=== PATIENT | male | born 1940 ===

== ENCOUNTER 2023-03-20 19:34 | Inpatient (IN) | payer MEDICARE, SELFPAY ==
--- NOTE | ~2023-03-20 | CT_ITS ---
EXAMINATION: CTA OF THE HEAD/NECK CLINICAL INFORMATION: Dysarthria COMPARISON: Head CT from today TECHNIQUE: A routine non contrast head CT was performed immediately prior. This was followed by a 70 mL bolus of Omnipaque 350. Subsequent multidetector helical imaging was performed of the head and neck. Delayed post contrast imaging was also performed through the head. Multiplanar reformats and MIP were also obtained. Internal carotid artery stenoses are assessed in accordance with NASCET criteria unless otherwise indicated. This CT examination was performed using dose optimization techniques as appropriate, variously including the following: *Automated exposure control *Adjustment of mA and/or kV according to patient size (this includes techniques or standardized protocols for targeted exams where dose is matched to indication/reason for exam; i.e. extremities or head) *Use of iterative reconstruction technique DLP: 1408 mGy-cm. FINDINGS: CT HEAD: There is no evidence of acute intracranial hemorrhage or territorial infarction. No abnormal mass effect or midline shift is seen. Erazo to white matter differentiation is well preserved. No extra-axial fluid collections are identified. No suspicious leptomeningeal or parenchymal enhancement on the post-contrast images. No hydrocephalus. Proportional prominence of the ventricles and sulcal spaces is consistent with mild volume loss. Patchy periventricular and deep white matter hypoattenuation is consistent with moderate small vessel ischemic changes. The osseous structures and soft tissues are normal. The mastoid air cells and visualized portions of the paranasal sinuses are well aerated. CTA NECK: The aortic arch is of normal caliber and the origins of the great vessels are patent without evidence of significant stenosis. The cervical portion of the vertebral arteries are patent bilaterally. No luminal irregularities in the common carotid arteries and the carotid bifurcations are patent bilaterally. Atherosclerotic calcification at the origin of both internal carotid arteries without associated flow-limiting stenosis. The cervical portion of the internal carotid arteries are of normal caliber. The laryngeal structures and pharyngeal mucosal spaces are unremarkable. The oral cavity appears normal. The parotid and submandibular glands are normal. No pathologically enlarged lymph nodes. The thyroid gland is unremarkable. The lung apices are clear without evidence of pneumothorax. Mild emphysema. Spinal alignment is maintained. Mild cervical spondylosis is noted. CTA HEAD: The intradural portion of the vertebral arteries are of normal caliber. The basilar, superior cerebellar, and posterior communicating arteries are patent. The posterior, middle, and anterior cerebral arteries are of normal caliber without evidence of significant luminal irregularity. No definite intracranial aneurysms. CT/CT angio head neck stroke IMPRESSION: 1. No acute intracranial finding. Chronic volume loss with small vessel ischemic change. 2. No large vessel occlusion or flow-limiting stenosis. This critical result was discussed with Toby Field MD by telephone at 03/20/2023 8:11 PM and it was ascertained that the content and urgency of the report was understood at the time of direct communication.
--- NOTE | ~2023-03-20 | CT_ITS ---
EXAMINATION: CT HEAD WITHOUT CONTRAST CLINICAL INFORMATION: Dysarthria COMPARISON: None. TECHNIQUE: Contiguous axial imaging was performed from the skull base to vertex without intravenous contrast. This CT examination was performed using dose optimization techniques as appropriate, variously including the following: * Automated exposure control * Adjustment of mA and/or kV according to patient size (this includes techniques or standardized protocols for targeted exams where dose is matched to indication/reason for exam; i.e. extremities or head) Use of iterative reconstruction technique DLP: 629 mGy-cm. FINDINGS: There is no evidence of acute intracranial hemorrhage or territorial infarction. No abnormal mass effect or midline shift is seen. Erazo to white matter differentiation is well preserved. No extra-axial fluid collections are identified. No hydrocephalus. Proportional prominence of the ventricles and sulcal spaces is consistent with mild volume loss. Patchy periventricular and deep white matter hypoattenuation is consistent with mild small vessel ischemic changes. The osseous structures and soft tissues are normal. The mastoid air cells and visualized portions of the paranasal sinuses are well aerated. CT/CT head for stroke IMPRESSION: No acute intracranial pathology. Mild volume loss with small vessel ischemic change. This critical result was discussed with Toby Field MD by telephone at 03/20/2023 8:09 PM and it was ascertained that the content and urgency of the report was understood at the time of direct communication.
--- NOTE | ~2023-03-20 | MR_ITS ---
EXAMINATION: MR BRAIN WITHOUT CONTRAST CLINICAL INFORMATION: CVA. COMPARISON: Head CT March 20, 2023. TECHNIQUE: Multiplanar, multisequence imaging of the brain was performed without intravenous contrast. FINDINGS: There is no acute infarction, hemorrhage, mass, or extra-axial fluid collection. There is a microhemorrhage within the left periatrial white matter. A small chronic lacunar infarct is seen within the left external capsule region. Mild chronic microangiopathic changes are seen in the cerebral white matter. There is a mild degree of diffuse brain parenchymal volume loss. There is a small amount of right mastoid fluid. There are bilateral lens replacements. MR/MR head/brain wo con IMPRESSION: No acute infarct, mass lesion, intracranial hemorrhage, or evidence of hydrocephalus. 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 Mild chronic microangiopathic changes and brain parenchymal volume loss.
[2023-03-20 19:43] VITALS: BP 110/70; BP 138/89; PULSE 110; PULSE 116; RESP 16; TEMP 37; O2SAT 97; O2SAT 98; BMI 24.4
--- NOTE | 2023-03-20 19:46 | ED.NEUROSD ---
HPI - Neuro Symptoms/Deficit General Chief Complaint: General Medical Stated Complaint: altered Time Seen by Provider: 03/20/23 19:41 Source: patient Mode of arrival: EMS Limitations: no limitations History of Present Illness HPI Narrative: Patient 83 years old with history of hypertension, hyperlipidemia and diabetes very active otherwise since yesterday evening noticed slight forgetfulness and uneasiness felt foggy at 22:15 yesterday noticed yes per problem in speaking and expressing himself which lasted for some time before he went to bed in the morning when he woke up he gets headache his speech problem still having the headache and fogginess at 18:00 again today patient noticed having difficulty expressing which lasted until he came to the ER no nausea no vomiting no palpitation no chest pain no focal weakness normal gait on arrival patient noticed to be in AFib with heart rate in 120 patient is unaware of that patient takes baby aspirin daily and drinks few 2-3 beers every day but not alcoholic Related Data Allergies Allergy/AdvReac Type Severity Reaction Status Date / Time No Known Allergies Allergy Verified 03/20/23 19:46 Review of Systems Review of Systems: Yes all other systems are reviewed and are negative [facility] Past Medical History Medical History Diabetes mellitus Hyperlipidemia Hypertension Social History Social History Alcohol intake: current Alcohol intake frequency: 3 or more drinks per day Alcohol type: beer Smoked in Last 30 Days: Yes Use of substances other than those prescribed or required for medical reasons: No Advance Directives: No Advance Directives Information Provided: No Physical Exam Vital Signs: Vital Signs: Last Vital Signs Temp 99.6 F 03/20/23 23:37 Pulse 107 H 03/20/23 23:37 Resp 14 03/20/23 23:37 BP 157/83 H 03/20/23 23:37 Pulse Ox 97 03/20/23 23:37 O2 Del Method Room Air 03/20/23 23:37 BMI result Body Mass Index 24.4 Appearance: Alert. Oriented X3. No acute distress. Eyes: PERRLA, No Nystagmus ENT: Pharynx normal. Oral Mucosa moist Neck: Normal inspection. Neck supple. CVS: Irregular irregular tachycardia no murmur or rub. Pulses normal. Respiratory: No respiratory distress. Equal air entry bilateral, no wheezing/rales/rhonchi Abdomen: Soft and nontender. Bowel sounds are present, no mass palpable, no CVA tenderness Skin: Skin warm and dry. Normal skin color. Normal skin turgor. Extremities: No lower extremity edema. No calf tenderness Neuro: Oriented X 3. No motor deficit. No sensory deficit.No cerebellar signs , cranial nerves II-XII intact normal speech and gait Medications Administered Generic Name Dose Route Start Last Admin Trade Name Freq PRN Reason Stop Dose Admin Enoxaparin Sodium 40 mg 03/20/23 23:30 03/20/23 23:41 Enoxaparin Sodium 40 Mg/0.4 Ml Syringe SUBCUT 40 mg BEDTIME GRICEL Administration Discontinued Medications Generic Name Dose Route Start Last Admin Trade Name Freq PRN Reason Stop Dose Admin Apixaban 5 mg 03/20/23 22:19 03/20/23 22:32 Apixaban 5 Mg Tablet PO 03/20/23 22:20 5 mg ONCE ONE Administration Aspirin 162 mg 03/20/23 20:36 03/20/23 20:43 Aspirin 81 Mg Tab.Chew PO 03/20/23 20:37 162 mg ONCE ONE Administration Sodium Chloride 1,000 mls @ 999 mls/hr 03/20/23 20:36 03/20/23 21:44 Ns IV 03/20/23 21:36 Infused .Q1H1M ONE Infusion Metoprolol Tartrate 5 mg 03/20/23 22:20 03/20/23 22:32 Metoprolol Tartrate 5 Mg/5 Ml Vial IVPUSH 03/20/23 22:21 5 mg ONCE ONE Administration Medical Decision Making Medical Decision Making [facility] Narrative: Patient with new onset of AFib with frequent TIAs since yesterday CT head and CTA head and neck negative for acute LVO or infarct. Patient unaware of AFib/tachycardia Patient already on aspirin will start on Eliquis with admit further evaluation Differential Diagnosis TIA/SAH//CVA/metabolic Consult Healthcare Provider Management of the patient was discussed with: Hospitalist Lab Data [facility] Lab Attestation statement: I reviewed the patient's lab results. 03/20/23 19:54 03/20/23 19:54 Labs: Lab Results 03/20/23 03/20/23 03/20/23 Range/Units 19:51 19:54 19:54 WBC 9.1 (4.8-10.8) X10*3/uL RBC 4.37 L (4.60-5.80) X10*6/uL Hgb 14.0 (14.0-18.0) g/dl Hct 40.0 L (42.0-52.0) % MCV 91.5 (80.0-98.0) fL MCH 32.0 (27.0-33.0) pg MCHC 35.0 (31.0-36.0) g/dl RDW 12.4 (11.0-16.0) % Plt Count 200 (160-400) X10*3/uL MPV 10.3 (9.4-12.4) fL Immature Gran % (Auto) 0.3 (0.0-0.4) % Neut % (Auto) 52.4 (45-73) % Lymph % (Auto) 33.9 (20-40) % Haskell % (Auto) 11.3 H (2-11) % Eos % (Auto) 1.7 (0-4) % Baso % (Auto) 0.4 (0-2) % Lymph # (Auto) 3.1 (1.2-4.9) X10*3/uL Haskell # (Auto) 1.0 (0.1-1.2) X10*3/uL Eos # (Auto) 0.2 (0.0-0.4) X10*3/uL Baso # (Auto) 0.0 (0.0-0.2) X10*3/uL Abs Immat Gran (auto) 0.03 (0.00-0.03) X10*3/uL Absolute Neuts (auto) 4.8 (2.0-8.3) x10*3/uL Absolute Nucleated RBC 0.000 (0.0-0.012) X10*3/uL Nucleated RBC % (auto) 0.0 (0.0-0.2) /100WBC PT (10.0-13.1) SEC INR (0.9-1.1) APTT (26.0-36.4) SEC Sodium 143 (135-145) mmol/L Potassium 3.5 (3.3-5.1) mmol/L Chloride 100 (96-108) mmol/L Carbon Dioxide 25 (22-29) mmol/L Anion Gap 22 H (12-20) BUN 24 H (9-16) mg/dL Creatinine 1.44 H (0.5-1.4) mg/dL Estim Creat Clear Calc 33.1 Estimated GFR 47 POC Glucose 108 (60-115) mg/dL Random Glucose 100 (60-115) mg/dL Calcium 10.1 (8.4-10.2) mg/dL Magnesium 1.7 (1.6-2.6) mg/dL Total Bilirubin 0.7 (0.0-1.0) mg/dL AST 16 (5-37) U/L ALT 14 (0-40) U/L Alkaline Phosphatase 44 (39-117) U/L Total Creatine Kinase 89 (38-174) U/L Troponin I High Sens (<3.5-35.0) ng/L Total Protein 7.0 (6.5-8.0) g/dL Albumin 4.6 (3.5-5.0) g/dL Triglycerides 141 mg/dL Cholesterol 114 mg/dL LDL Cholesterol, Calc 54 mg/dl HDL Cholesterol 32 mg/dL Ethyl Alcohol 83 mg/dL 03/20/23 03/20/23 Range/Units 19:54 19:54 WBC (4.8-10.8) X10*3/uL RBC (4.60-5.80) X10*6/uL Hgb (14.0-18.0) g/dl Hct (42.0-52.0) % MCV (80.0-98.0) fL MCH (27.0-33.0) pg MCHC (31.0-36.0) g/dl RDW (11.0-16.0) % Plt Count (160-400) X10*3/uL MPV (9.4-12.4) fL Immature Gran % (Auto) (0.0-0.4) % Neut % (Auto) (45-73) % Lymph % (Auto) (20-40) % Haskell % (Auto) (2-11) % Eos % (Auto) (0-4) % Baso % (Auto) (0-2) % Lymph # (Auto) (1.2-4.9) X10*3/uL Haskell # (Auto) (0.1-1.2) X10*3/uL Eos # (Auto) (0.0-0.4) X10*3/uL Baso # (Auto) (0.0-0.2) X10*3/uL Abs Immat Gran (auto) (0.00-0.03) X10*3/uL Absolute Neuts (auto) (2.0-8.3) x10*3/uL Absolute Nucleated RBC (0.0-0.012) X10*3/uL Nucleated RBC % (auto) (0.0-0.2) /100WBC PT 11.0 (10.0-13.1) SEC INR 1.0 (0.9-1.1) APTT 28.3 (26.0-36.4) SEC Sodium (135-145) mmol/L Potassium (3.3-5.1) mmol/L Chloride (96-108) mmol/L Carbon Dioxide (22-29) mmol/L Anion Gap (12-20) BUN (9-16) mg/dL Creatinine (0.5-1.4) mg/dL Estim Creat Clear Calc Estimated GFR POC Glucose (60-115) mg/dL Random Glucose (60-115) mg/dL Calcium (8.4-10.2) mg/dL Magnesium (1.6-2.6) mg/dL Total Bilirubin (0.0-1.0) mg/dL AST (5-37) U/L ALT (0-40) U/L Alkaline Phosphatase (39-117) U/L Total Creatine Kinase (38-174) U/L Troponin I High Sens 2.9 (<3.5-35.0) ng/L Total Protein (6.5-8.0) g/dL Albumin (3.5-5.0) g/dL Triglycerides mg/dL Cholesterol mg/dL LDL Cholesterol, Calc mg/dl HDL Cholesterol mg/dL Ethyl Alcohol mg/dL Independent Interpretation I performed an independent interpretation of an: EKG Interpretation: Atrial fibrillation with ventricular rate 115 beats per minute no acute ST T wave changes no acute ischemia NIH Stroke Scale Internal: Initial- Upon Arrival Level of Consciousness: Alert Level of Consciousness Questions: Answers both questions correctly Level of Consciousness Commands: Performs both tasks correctly Best Gaze: Normal Visual: No visual loss Facial Palsy: Normal Motor Arm (Right): No drift Motor Arm (Left): No drift Motor Leg (Right): No drift Motor Leg (Left): No drift Limb Ataxia: Absent Sensory: Normal Best Language: No aphasia Dysarthia: Normal Extinction and Inattention: No abnormality Score: 0 Discharge Plan Discharge Clinical Impression: Transient ischemic attack, Atrial fibrillation with rapid ventricular response, Acute renal failure Patient Disposition: Admitted As Inpatient
--- NOTE | 2023-03-20 19:47 | ECG_ITS ---
Test Reason : HYPERTENSION Blood Pressure : / mmHG Vent. Rate : 115 BPM Atrial Rate : 000 BPM P-R Int : 000 ms QRS Dur : 080 ms QT Int : 284 ms P-R-T Axes : 000 000 005 degrees QTc Int : 392 ms Atrial fibrillation with rapid ventricular response Abnormal ECG When compared with ECG of 20-FEB-2003 09:56, Atrial fibrillation has replaced Sinus rhythm Vent. rate has increased BY 51 BPM Referred By: Toby Field Electronically Signed By:Andrea Ayala
[2023-03-20 19:56] VITALS: BP 146/90; PULSE 121; RESP 16; TEMP 37; O2SAT 99
[2023-03-20 19:59] LABS: MANUAL DIFF FLAG NO
[2023-03-20 20:00] VITALS: BP 146/97; PULSE 113; RESP 18; O2SAT 97
[2023-03-20 20:04] LABS: Basophils Percent Auto 0.4 % (0-2); Eosinophils Absolute Auto 0.2 X10*3/uL (0.0-0.4); Eosinophils Percent Auto 1.7 % (0-4); Imm Gran Abs Auto 0.03 X10*3/uL (0.00-0.03); Imm Gran Pct Auto 0.3 % (0.0-0.4); Lymphocytes Absolute Auto 3.1 X10*3/uL (1.2-4.9); Lymphocytes Percent Auto 33.9 % (20-40); Mean Corpuscular Volume 91.5 fL (80.0-98.0); Mean Platelet Volume 10.3 fL (9.4-12.4); Monocytes Percent Auto 11.3 % (2-11); Neutrophils Absolute Auto 4.8 x10*3/uL (2.0-8.3); Neutrophils Percent Auto 52.4 % (45-73); Platelet Count 200 X10*3/uL (160-400); Red Blood Count 4.37 X10*6/uL (4.60-5.80); Red Cell Distribution Width 12.4 % (11.0-16.0); White Blood Count 9.1 X10*3/uL (4.8-10.8)
[2023-03-20 20:11] LABS: Partial Thromboplastin Time 28.3 SEC (26.0-36.4)
[2023-03-20 20:15] LABS: Stroke Lab Use COMPLETE
[2023-03-20 20:19] LABS: Troponin-I High Sensitivity 2.9 ng/L (<3.5-35.0)
[2023-03-20 20:21] LABS: Alanine Aminotransferase 14 U/L (0-40); Albumin Level 4.6 g/dL (3.5-5.0); Alkaline Phosphatase 44 U/L (39-117); Anion Gap 22 (12-20); Aspartate Amino Transferase 16 U/L (5-37); Bilirubin Total 0.7 mg/dL (0.0-1.0); Blood Urea Nitrogen 24 mg/dL (9-16); Calcium 10.1 mg/dL (8.4-10.2); Carbon Dioxide 25 mmol/L (22-29); Chloride 100 mmol/L (96-108); Creatinine Clr Calc Pharmacy 33.1; Estimated Glomerular Filt Rate 47; Ethanol 83 mg/dL; Glucose Random 100 mg/dL (60-115); Magnesium 1.7 mg/dL (1.6-2.6); Potassium 3.5 mmol/L (3.3-5.1); Sodium 143 mmol/L (135-145)
[2023-03-20] MEDS: Aspirin 81 MG TAB.CHEW 162 MG PO (20:43)
[2023-03-20] MEDS: 0.9 % Sodium Chloride 1,000 ML 999 ML IV (20:43)
[2023-03-20 22:00] VITALS: BP 164/88; PULSE 116; RESP 16; TEMP 37; O2SAT 96
--- NOTE | 2023-03-20 22:09 | ECG_ITS ---
Test Reason : A-FIB WITH RVR Blood Pressure : / mmHG Vent. Rate : 111 BPM Atrial Rate : 000 BPM P-R Int : 000 ms QRS Dur : 086 ms QT Int : 278 ms P-R-T Axes : 000 010 011 degrees QTc Int : 378 ms Atrial fibrillation with rapid ventricular response Abnormal ECG When compared with ECG of 20-MAR-2023 20:25, No significant change was found Referred By: Toby Field Electronically Signed By:STEPHANIE MEYER MD
[2023-03-20 22:15] LABS: Glucose, Whole Blood 108 mg/dL (60-115)
[2023-03-20] MEDS: Metoprolol Tartrate 5 MG/5 ML VIAL IVPUSH (22:32)
[2023-03-20] MEDS: Apixaban 5 MG TABLET PO (22:32)
--- NOTE | 2023-03-20 22:50 | P.HPHOSP_ITS ---
History of Present Illness Date of Service: 03/20/23 Chief Complaint: Slurring of speech This is a 83 pertinent history of rme-ofeighn-apocglajb diabetes mellitus, essential hypertension, mixed hyperlipidemia who presents to the emergency department for evaluation of slurred speech. Patient states he had an episode of slurred speech 1 day prior to presentation tested for about 4 hours. Patient states he attended his granddaughter's graduation and came home when he noticed slurred speech. Patient did not want to come to the ER. He also had slight headache overnight. On the day of presentation, patient again had an episode of slurred speech which lasted for about an hour. No loss of consciousness, tongue bite, jerking movement of extremities, facial droop, extremity weakness or similar complaints in the past. Patient denies fever, chills, chest discomfort, palpitations, shortness of breath, abdominal pain, changes in urinary or bowel habits. No history of heart rhythm issues In the emergency department, patient was found to be in AFib with RVR Review of Systems Constitutional: Constitutional: Reports no additional constitutional complaints Cardiovascular: Cardiovascular: Reports no additional cardiovascular complaints Respiratory: Respiratory: Reports no additional respiratory complaints Gastrointestinal: Gastrointestinal: Reports no additional gastrointestinal complaints Genitourinary: Genitourinary: Reports no additional male genitourinary complaints Neurologic: Reports Abnormal speech present [facility] Medical History Diabetes mellitus Hyperlipidemia Hypertension Pertinent family history: Not significant due to age. Father had acute CVA in the 70s Social History Alcohol intake: current Alcohol intake frequency: 3 or more drinks per day Alcohol type: beer Smoked in Last 30 Days: Yes Use of substances other than those prescribed or required for medical reasons: No Advance Directives: No Advance Directives Information Provided: No Meds Allergies Allergy/AdvReac Type Severity Reaction Status Date / Time No Known Allergies Allergy Verified 03/20/23 19:46 Active Medications: Current Medications Acetaminophen (Acetaminophen 325 Mg Tablet) 650 mg PO Q6H PRN PRN Reason: Pain, Mild (Pain Scale 1-3) Melatonin (Melatonin 3 Mg Tablet) 6 mg PO BEDTIME PRN PRN Reason: Insomnia Ondansetron HCl (Ondansetron Hcl 4 Mg/2 Ml Vial) 4 mg IVPUSH Q8H PRN PRN Reason: Nausea and Vomiting Sodium Chloride (0.9 % Sodium Chloride Flush 3 Ml Syringe) 3 ml IVFLUSH QSHIFT [facility] Physical Exam Vital Signs and Narrative: Vital Signs: Last Vital Signs Temp 98.6 F 03/20/23 22:00 Pulse 116 H 03/20/23 22:00 Resp 16 03/20/23 22:00 BP 164/88 H 03/20/23 22:00 Pulse Ox 96 03/20/23 22:00 O2 Del Method Room Air 03/20/23 22:00 BMI result Body Mass Index 24.4 Elderly male lying in bed in no distress Neck supple, no JVD Irregularly irregular, S1-S2 heard Regular breath sounds bilaterally, no wheezing or crackles appreciated Abdomen soft nontender, no guarding, no rigidity Patient is awake, alert and oriented to self, place, time and person ; no facial droop, no dysarthria, no nystagmus, no pronator drift, strength 5/5 in bilateral upper and lower extremity, tongue and uvula midline Psych: Normal mood No pedal edema Neuro: Speech: Abnormal speech present Results Labs 03/20/23 19:54 03/20/23 19:54 Labs: Laboratory Results - last 24 hr 03/20/23 03/20/23 03/20/23 19:51 19:54 19:54 MCV 91.5 MCH 32.0 MCHC 35.0 RDW 12.4 Plt Count 200 MPV 10.3 Immature Gran % (Auto) 0.3 Neut % (Auto) 52.4 Lymph % (Auto) 33.9 Humphreys % (Auto) 11.3 H Eos % (Auto) 1.7 Baso % (Auto) 0.4 Lymph # (Auto) 3.1 Humphreys # (Auto) 1.0 Eos # (Auto) 0.2 Baso # (Auto) 0.0 Abs Immat Gran (auto) 0.03 Absolute Neuts (auto) 4.8 Absolute Nucleated RBC 0.000 Nucleated RBC % (auto) 0.0 PT INR APTT Anion Gap 22 H Estim Creat Clear Calc 33.1 Estimated GFR 47 POC Glucose 108 Random Glucose 100 Calcium 10.1 Magnesium 1.7 Total Bilirubin 0.7 AST 16 ALT 14 Alkaline Phosphatase 44 Total Creatine Kinase 89 Troponin I High Sens Total Protein 7.0 Albumin 4.6 Ethyl Alcohol 83 06/11/23 06/11/23 19:54 19:54 MCV MCH MCHC RDW Plt Count MPV Immature Gran % (Auto) Neut % (Auto) Lymph % (Auto) Humphreys % (Auto) Eos % (Auto) Baso % (Auto) Lymph # (Auto) Humphreys # (Auto) Eos # (Auto) Baso # (Auto) Abs Immat Gran (auto) Absolute Neuts (auto) Absolute Nucleated RBC Nucleated RBC % (auto) PT 11.0 INR 1.0 APTT 28.3 Anion Gap Estim Creat Clear Calc Estimated GFR POC Glucose Random Glucose Calcium Magnesium Total Bilirubin AST ALT Alkaline Phosphatase Total Creatine Kinase Troponin I High Sens 2.9 Total Protein Albumin Ethyl Alcohol Imaging Radiologist's Impressions: Impressions Head CT 03/20/23 20:04 IMPRESSION: No acute intracranial pathology. Mild volume loss with small vessel ischemic change. This critical result was discussed with Toby Field MD by telephone at 03/20/2023 8:09 PM and it was ascertained that the content and urgency of the report was understood at the time of direct communication. Head/Neck CTA 03/20/23 20:09 IMPRESSION: 1. No acute intracranial finding. Chronic volume loss with small vessel ischemic change. 2. No large vessel occlusion or flow-limiting stenosis. This critical result was discussed with Toby Field MD by telephone at 03/20/2023 8:11 PM and it was ascertained that the content and urgency of the report was understood at the time of direct communication. Assessment and Plan (1) Transient ischemic attack: Status: Acute (2) Atrial fibrillation with rapid ventricular response: Status: Acute Plan This is a 83 pertinent history of ocr-hoqaykw-eiclikssz diabetes mellitus, essential hypertension, mixed hyperlipidemia who presents to the emergency department for evaluation of slurred speech. #. Slurred speech, transient concerning for TIA. ABCD2 score 6. Will obtain MRI to rule out acute CVA. Obtaining A1c, echo and lipid panel to complete workup and optimize risk factors. Patient given aspirin in the ER. Appreciate neurology assistance #. AFib with RVR, ?new onset. Rate controlled with IV metoprolol in the ER. Consulting Cardiology and obtaining echo. CHADVASc score 6 #. Eleveated creatinine. ADRIANA vs CKD. Monitor with IV crystalloid resuscitation. Avoid nephrotoxins #. Ngy-vtlitls-wpmzdolsg diabetes mellitus. Initiating Accu-Cheks with sliding scale insulin #. Essential hypertension. Continue home p.o. antihypertensives #. Mixed hyperlipidemia. On statin Med rec pending DVT prophylaxis: Lovenox Full code Cardiac diet Admit as inpatient and will require two night minimum hospital stay for stroke and new onset AFib with RVR workup. Specialist consult pending Time Spent With Patient Time: Total time managing care of this patient today ____ minutes. Quality Stroke Does the patient have a stroke diagnosis?: No Reason for No Anti-thrombotic by Day Two: N/A - Med Ordered VTE Prior VTE?: No VTE Risk Level:: Medical - moderate - high VTE Device Contraindication: Treatment Not Indicated VTE Drug Contraindication: N/A - Med Ordered
[2023-03-20 23:37] VITALS: BP 157/83; PULSE 107; RESP 14; TEMP 37.6; O2SAT 97
[2023-03-20] MEDS: Enoxaparin Sodium 40 MG/0.4 ML SYRINGE SUBCUT (23:41)
[2023-03-20 23:44] LABS: Cholesterol 114 mg/dL; HDL Cholesterol 32 mg/dL; LDL Cholesterol Calculated 54 mg/dl; Triglycerides 141 mg/dL
[2023-03-21 00:12] LABS: Reflex LDLD? No
--- NOTE | 2023-03-21 00:16 | PC.NURSE ---
Report Given to
[2023-03-21] MEDS: 0.9 % Sodium Chloride Flush 3 ML SYRINGE IVFLUSH ×2 (02:07→08:28)
[2023-03-21 02:17] VITALS: BP 143/81; PULSE 94; RESP 18; TEMP 37.2; O2SAT 96
[2023-03-21 04:00] VITALS: BP 144/81; PULSE 107; RESP 18; TEMP 36.4; O2SAT 98
[2023-03-21 06:26] LABS: MANUAL DIFF FLAG NO
[2023-03-21 06:52] LABS: Basophils Absolute Auto 0.1 X10*3/uL (0.0-0.2); Basophils Percent Auto 0.6 % (0-2); Eosinophils Absolute Auto 0.1 X10*3/uL (0.0-0.4); Eosinophils Percent Auto 1.4 % (0-4); Hematocrit 38.1 % (42.0-52.0); Hemoglobin 13.2 g/dl (14.0-18.0); Imm Gran Abs Auto 0.04 X10*3/uL (0.00-0.03); Imm Gran Pct Auto 0.4 % (0.0-0.4); Lymphocytes Absolute Auto 2.2 X10*3/uL (1.2-4.9); Lymphocytes Percent Auto 24.4 % (20-40); Mean Corpuscular HGB Conc 34.6 g/dl (31.0-36.0); Mean Corpuscular Volume 92.3 fL (80.0-98.0); Mean Platelet Volume 11.2 fL (9.4-12.4); Monocytes Percent Auto 10.8 % (2-11); Neutrophils Absolute Auto 5.6 x10*3/uL (2.0-8.3); Neutrophils Percent Auto 62.4 % (45-73); Platelet Count 190 X10*3/uL (160-400); Red Blood Count 4.13 X10*6/uL (4.60-5.80); Red Cell Distribution Width 12.3 % (11.0-16.0)
[2023-03-21 07:00] LABS: Anion Gap 12 (12-20); Blood Urea Nitrogen 21 mg/dL (9-16); Calcium 9.5 mg/dL (8.4-10.2); Carbon Dioxide 31 mmol/L (22-29); Chloride 102 mmol/L (96-108); Creatinine Clr Calc Pharmacy 42.2; Estimated Glomerular Filt Rate > 60; Glucose Random 119 mg/dL (60-115); Potassium 3.5 mmol/L (3.3-5.1); Sodium 141 mmol/L (135-145)
[2023-03-21 07:13] LABS: Glucose, Whole Blood 122 mg/dL (60-115)
--- NOTE | 2023-03-21 07:17 | PHA.MEDREC ---
Pharmacy Consult ? Medication Reconciliation Pharmacy has completed the medication reconciliation. Used pharmacy claims
[2023-03-21 07:21] VITALS: BP 131/81; PULSE 93; RESP 20; TEMP 36.9; O2SAT 97
[2023-03-21 07:54] LABS: Estimated Average Glucose 108 mg/dL; Hemoglobin A1c % 5.4 %
[2023-03-21] MEDS: hydroCHLOROthiazide 25 MG TABLET PO (08:28)
[2023-03-21] MEDS: Cyanocobalamin (Vitamin B-12) 1,000 MCG TABLET 1000 MCG PO (08:28)
[2023-03-21] MEDS: lisinopriL 40 MG TABLET PO (08:28)
[2023-03-21] MEDS: Atorvastatin Calcium 40 MG TABLET PO (08:28)
--- NOTE | 2023-03-21 10:35 | P.CONCA_ITS ---
History of Present Illness History of Present Illness Date of Service: 03/21/23 Requesting physician: Ivett Delgado Consult reason: atrial fibrillation Chief complaint: slurring of speech Narrative: Thank you for consulting us on Santiago in management of his atrial fibrillation. He is a pleasant and active 83-year-old male who presented to the hospital with slurred speech. No other obvious neurologic deficits. Symptoms then recurred in the emergency room. He had a CT scan which was unremarkable. He was noted to be in atrial fibrillation rapid ventricular response. He has no symptoms related to atrial fibrillation. He says very active and has had longstanding hypertension for 50 years and is been on the same medications for that long. He also has history of diabetes. He has never had any cardiac issues. Has never had congestive heart failure, coronary artery disease, myocardial infarction, cardiac arrhythmias. He denies any symptoms of palpitations. He denies any lightheadedness, syncope. He was not aware that it heart was not irregular rhythm. He said he has never been told that he has had cardiac arrhythmias in the past. He has no current cardiac symptoms. Denies any chest pain or shortness of breath. Unclear as to the duration of his atrial fibrillation. His rate is adequately controlled at this point in time. Review of Systems Constitutional: Constitutional: Reports no additional constitutional c omplaints Eyes: Eyes: Reports no additional eye complaints Cardiovascular: Cardiovascular: Reports no additional cardiovascular complaints Respiratory: Respiratory: Reports no additional respiratory complaints Gastrointestinal: Gastrointestinal: Reports no additional gastrointestinal complaints Musculoskeletal: Musculoskeletal: Reports no additional musculoskeletal complaints Neurologic: Reports Abnormal speech present Hematologic/Lymphatic: Hematologic/Lymphatic: Reports no additional hematologic/lymphatic complaints Allergic/Immunologic: Allergic/Immunologic: Reports no additional al lergic/immunologic complaints [facility] Past Medical History Medical History Diabetes mellitus Hyperlipidemia Hypertension Social History Social History Household Members: Spouse Housing: House Do you presently have visiting nurse or other home services: No Alcohol intake: current Alcohol intake frequency: 3 or more drinks per day Alcohol type: beer Patient Tobacco Use Status: Former Tobacco user Meds Allergies Allergy/AdvReac Type Severity Reaction Status Date / Time No Known Allergies Allergy Verified 03/20/23 19:46 Active Medications: Current Medications Acetaminophen (Acetaminophen 325 Mg Tablet) 650 mg PO Q6H PRN PRN Reason: Pain, Mild (Pain Scale 1-3) Apixaban (Apixaban 5 Mg Tablet) 5 mg PO BID [facility] Atorvastatin Calcium (Atorvastatin Calcium 40 Mg Tablet) 40 mg PO DAILY [facility] Last Admin: 03/21/23 08:28 Dose: 40 mg Cyanocobalamin (Cyanocobalamin (Vitamin B-12) 1,000 Mcg Tablet) 1,000 mcg PO DAILY [facility] Last Admin: 03/21/23 08:28 Dose: 1,000 mcg Glucose (Glucose Gel 15 Gm Gel..Gram.) 15 gm PO Q15M PRN; Protocol PRN Reason: per Hypoglycemia Standing Ord. Dextrose (D10) 250 mls @ 750 mls/hr IV Q15M PRN; Protocol PRN Reason: per Hypoglycemia Standing Ord. Insulin Human Lispro (Insulin Lispro 100 Unit/Ml 3 Ml Vial) 0 unit SUBCUT QIDACHS [facility]; Protocol Last Admin: 03/21/23 07:25 Dose: Not Given Lisinopril (Lisinopril 20 Mg Tablet) 20 mg PO DAILY [facility]; Protocol Melatonin (Melatonin 3 Mg Tablet) 6 mg PO BEDTIME PRN PRN Reason: Insomnia Metoprolol Tartrate (Metoprolol Tartrate 25 Mg Tablet) 25 mg PO BID [facility]; Protocol Ondansetron HCl (Ondansetron Hcl 4 Mg/2 Ml Vial) 4 mg IVPUSH Q8H PRN PRN Reason: Nausea and Vomiting Pharmacy Consult (Consult Rx Perform Med Rec) 1 each MISCELLANE ONCE PRN PRN Reason: Consult order Sodium Chloride (0.9 % Sodium Chloride Flush 3 Ml Syringe) 3 ml IVFLUSH QSHIFT [facility] Last Admin: 03/21/23 08:28 Dose: 3 ml Home Medications Medication Instructions Recorded Confirmed Last Taken Type cyanocobalamin (vitamin B-12) 1,000 mcg PO DAILY 03/21/23 03/21/23 Unknown History 1,000 mcg tablet (Vitamin B-12) hydrochlorothiazide 25 mg tablet 25 mg PO DAILY 03/21/23 03/21/23 Unknown His tory lisinopril 40 mg tablet 40 mg PO DAILY 03/21/23 03/21/23 Unknown History metformin 500 mg tablet 1,000 mg PO BID 03/21/23 03/21/23 Unknown History rosuvastatin 10 mg tablet 10 mg PO DAILY 03/21/23 03/21/23 Unknown History Physical Exam Vital Signs: Vital Signs: Last Vital Signs Temp 98.4 F 03/21/23 07:21 Pulse 93 03/21/23 07:21 Resp 20 03/21/23 07:21 BP 131/81 03/21/23 07:21 Pulse Ox 97 03/21/23 07:21 O2 Del Method Room Air 03/21/23 07:21 BMI result Body Mass Index 24.4 Const: General: cooperative, comfortable, no acute distress, alert, awake and Physically active Nutritional Appearance: average body habitus Orientation/consciousness: patient oriented x3 HEENT: Head: Yes normocephalic and Yes atraumatic Neck: Neck: Yes trachea midline, Yes supple and Yes no JVD Resp: Effort & Inspection: normal respiratory effort Auscultation: clear to auscultation bilaterally GI: Auscultation: normal bowel sounds Skin: General skin exam: no rashes or lesions noted Neuro: General: patient oriented x3 and no focal motor deficits Speech: Abnormal speech present Extrem: General: Yes no clubbing, cyanosis or edema Objective Labs and Meds 03/21/23 05:40 03/21/23 05:40 Lab results: Laboratory Results - last 24 hr 03/20/23 03/20/23 03/20/23 19:51 19:54 19:54 WBC 9.1 RBC 4.37 L Hgb 14.0 Hct 40.0 L MCV 91.5 MCH 32.0 MCHC 35.0 RDW 12.4 Plt Count 200 MPV 10.3 Immature Gran % (Auto) 0.3 Neut % (Auto) 52.4 Lymph % (Auto) 33.9 [place] % (Auto) 11.3 H Eos % (Auto) 1.7 Baso % (Auto) 0.4 Lymph # (Auto) 3.1 [place] # (Auto) 1.0 Eos # (Auto) 0.2 Baso # (Auto) 0.0 Abs Immat Gran (auto) 0.03 Absolute Neuts (auto) 4.8 Absolute Nucleated RBC 0.000 Nucleated RBC % (auto) 0.0 PT INR APTT Sodium 143 Potassium 3.5 Chloride 100 Carbon Dioxide 25 Anion Gap 22 H BUN 24 H Creatinine 1.44 H Estim Creat Clear Calc 33.1 Estimated GFR 47 POC Glucose 108 Random Glucose 100 Estimat Average Glucose Hemoglobin A1c % Calcium 10.1 Magnesium 1.7 Total Bilirubin 0.7 AST 16 ALT 14 Alkaline Phosphatase 44 Total Creatine Kinase 89 Troponin I High Sens Total Protein 7.0 Albumin 4.6 Triglycerides 141 Cholesterol 114 LDL Cholesterol, Calc 54 HDL Cholesterol 32 Ethyl Alcohol 83 03/20/23 03/20/23 03/20/23 19:54 19:54 19:54 WBC RBC Hgb Hct MCV MCH MCHC RDW Plt Count MPV Immature Gran % (Auto) Neut % (Auto) Lymph % (Auto) [place] % (Auto) Eos % (Auto) Baso % (Auto) Lymph # (Auto) [place] # (Auto) Eos # (Auto) Baso # (Auto) Abs Immat Gran (auto) Absolute Neuts (auto) Absolute Nucleated RBC Nucleated RBC % (auto) PT 11.0 INR 1.0 APTT 28.3 Sodium Potassium Chloride Carbon Dioxide Anion Gap BUN Creatinine Estim Creat Clear Calc Estimated GFR POC Glucose Random Glucose Estimat Average Glucose 108 Hemoglobin A1c % 5.4 Calcium Magnesium Total Bilirubin AST ALT Alkaline Phosphatase Total Creatine Kinase Troponin I High Sens 2.9 Total Protein Albumin Triglycerides Cholesterol LDL Cholesterol, Calc HDL Cholesterol Ethyl Alcohol 03/21/23 03/21/23 03/21/23 05:40 05:40 07:01 WBC 9.0 RBC 4.13 L Hgb 13.2 L Hct 38.1 L MCV 92.3 MCH 32.0 MCHC 34.6 RDW 12.3 Plt Count 190 MPV 11.2 Immature Gran % (Auto) 0.4 Neut % (Auto) 62.4 Lymph % (Auto) 24.4 [place] % (Auto) 10.8 Eos % (Auto) 1.4 Baso % (Auto) 0.6 Lymph # (Auto) 2.2 [place] # (Auto) 1.0 Eos # (Auto) 0.1 Baso # (Auto) 0.1 Abs Immat Gran (auto) 0.04 H Absolute Neuts (auto) 5.6 Absolute Nucleated RBC 0.000 Nucleated RBC % (auto) 0.0 PT INR APTT Sodium 141 Potassium 3.5 Chloride 102 Carbon Dioxide 31 H Anion Gap 12 BUN 21 H Creatinine 1.13 Estim Creat Clear Calc 42.2 Estimated GFR > 60 POC Glucose 122 H Random Glucose 119 H Estimat Average Glucose Hemoglobin A1c % Calcium 9.5 Magnesium Total Bilirubin AST ALT Alkaline Phosphatase Total Creatine Kinase Troponin I High Sens Total Protein Albumin Triglycerides Cholesterol LDL Cholesterol, Calc HDL Cholesterol Ethyl Alcohol EKG shows atrial fibrillation with rapid ventricular response without acute ST T wave changes Imaging Radiologist's impression: Impressions Head CT 03/20/23 20:04 IMPRESSION: No acute intracranial pathology. Mild volume loss with small vessel ischemic change. This critical result was discussed with Toby Field MD by telephone at 03/20/2023 8:09 PM and it was ascertained that the content and urgency of the report was understood at the time of direct communication. Head/Neck CTA 03/20/23 20:09 IMPRESSION: 1. No acute intracranial finding. Chronic volume loss with small vessel ischemic change. 2. No large vessel occlusion or flow-limiting stenosis. This critical result was discussed with Toby Field MD by telephone at 03/20/2023 8:11 PM and it was ascertained that the content and urgency of the report was understood at the time of direct communication. Assessment and Plan (1) Atrial fibrillation with rapid ventricular response: Status: Acute New onset atrial fibrillation without any obvious cardiac symptoms or signs of decompensation, was rate adequately control at this point time. Patient has longstanding history of hypertension and diabetes and present with stroke-like symptoms. MRI is pending. Patient requires oral anticoagulation given his high risk for recurrent stroke. Agree with Eliquis 5 mg b.i.d. given his renal function is improved. Also agree with metoprolol for rate control. Continue lisinopril for blood pressure control. Continue management of diabetes. Currently the duration of atrial fibrillation is unknown as he had seen his primary care physician more than a year ago and he has not noticed any new cardiac symptoms. Will follow up with him in 4 weeks time after echocardiogram and Holter monitor which can be done as outpatient to discuss rhythm management in the future. Management plan was discussed with him in details. He understands agrees. Patient can be discharged home later today. Will follow up with him in 4 weeks time. Thank you for allowing me to partake in his care Time Spent With Patient Time: Total time managing care of this patient today ____ minutes. Procedures Date of Service Date of Service: 03/21/23
[2023-03-21 11:04] LABS: Glucose, Whole Blood 153 mg/dL (60-115)
[2023-03-21 11:10] VITALS: BP 108/57; PULSE 90; RESP 20; TEMP 36.6; O2SAT 97
[2023-03-21] MEDS: Metoprolol Tartrate 25 MG TABLET PO (11:50)
[2023-03-21] MEDS: Apixaban 5 MG TABLET PO (11:51)
--- NOTE | 2023-03-21 13:09 | P.CNNE_ITS ---
History of Present Illness Data of Consult Service Date: 03/21/23 Primary Care Provider: Roderick Williamson MD [facility] Reason for consult: Difficulty speaking 83 years old man who was having difficulty speaking since yesterday or maybe even before that. He said that he could not say what he wanted to say and something else was coming out. There was no associated focal weakness or pain. He remember what had happened. Today speech was back to baseline. Review of Systems Review of Systems: No recent headache or chest pain or palpitation. [facility] Past Medical History Medical History Diabetes mellitus Hyperlipidemia Hypertension Social History Social History Household Members: Spouse Housing: House Do you presently have visiting nurse or other home services: No Alcohol intake: current Alcohol intake frequency: 3 or more drinks per day Alcohol type: beer Patient Tobacco Use Status: Former Tobacco user Meds Allergies Allergy/AdvReac Type Severity Reaction Status Date / Time No Known Allergies Allergy Verified 03/20/23 19:46 Active Medications: Current Medications Acetaminophen (Acetaminophen 325 Mg Tablet) 650 mg PO Q6H PRN PRN Reason: Pain, Mild (Pain Scale 1-3) Apixaban (Apixaban 5 Mg Tablet) 5 mg PO BID [facility] Last Admin: 03/21/23 11:51 Dose: 5 mg Atorvastatin Calcium (Atorvastatin Calcium 40 Mg Tablet) 40 mg PO DAILY [facility] Last Admin: 03/21/23 08:28 Dose: 40 mg Cyanocobalamin (Cyanocobalamin (Vitamin B-12) 1,000 Mcg Tablet) 1,000 mcg PO DAILY [facility] Last Admin: 03/21/23 08:28 Dose: 1,000 mcg Glucose (Glucose Gel 15 Gm Gel..Gram.) 15 gm PO Q15M PRN; Protocol PRN Reason: per Hypoglycemia Standing Ord. Dextrose (D10) 250 mls @ 750 mls/hr IV Q15M PRN; Protocol PRN Reason: per Hypoglycemia Standing Ord. Insulin Human Lispro (Insulin Lispro 100 Unit/Ml 3 Ml Vial) 0 unit SUBCUT QIDACHS [facility]; Protocol Last Admin: 03/21/23 11:13 Dose: Not Given Lisinopril (Lisinopril 20 Mg Tablet) 20 mg PO DAILY [facility]; Protocol Melatonin (Melatonin 3 Mg Tablet) 6 mg PO BEDTIME PRN PRN Reason: Insomnia Metoprolol Tartrate (Metoprolol Tartrate 25 Mg Tablet) 25 mg PO BID [facility]; Protocol Last Admin: 03/21/23 11:50 Dose: 25 mg Ondansetron HCl (Ondansetron Hcl 4 Mg/2 Ml Vial) 4 mg IVPUSH Q8H PRN PRN Reason: Nausea and Vomiting Pharmacy Consult (Consult Rx Perform Med Rec) 1 each MISCELLANE ONCE PRN PRN Reason: Consult order Sodium Chloride (0.9 % Sodium Chloride Flush 3 Ml Syringe) 3 ml IVFLUSH QSHIFT [facility] Last Admin: 03/21/23 08:28 Dose: 3 ml Home Medications Medication Instructions Recorded Confirmed Last Taken Type cyanocobalamin (vitamin B-12) 1,000 mcg PO DAILY 03/21/23 03/21/23 Unknown History 1,000 mcg tablet (Vitamin B-12) hydrochlorothiazide 25 mg tablet 25 mg PO DAILY 03/21/23 03/21/23 Unknown History lisinopril 40 mg tablet 40 mg PO DAILY 03/21/23 03/21/23 Unknown History metformin 500 mg tablet 1,000 mg PO BID 03/21/23 03/21/23 Unknown History rosuvastatin 10 mg tablet 10 mg PO DAILY 03/21/23 03/21/23 Unknown History Physical Exam Vital Signs: Vital Signs: Last Vital Signs Temp 97.8 F 03/21/23 11:10 Pulse 90 03/21/23 11:10 Resp 20 03/21/23 11:10 BP 108/57 L 03/21/23 11:10 Pulse Ox 97 03/21/23 11:10 O2 Del Method Room Air 03/21/23 11:10 BMI result Body Mass Index 24.4 Neuro: Other: He is alert and awake with normal spontaneity of speech fluency comprehension and affect. Face is symmetrical. Visual piña are full. Deep tendon reflexes are trace with flexor plantars. Affect is normal. Results Labs 03/21/23 05:40 03/21/23 05:40 Labs: Short CBC 03/20/23 03/21/23 Range/Units 19:54 05:40 WBC 9.1 9.0 (4.8-10.8) X10*3/uL Hgb 14.0 13.2 L (14.0-18.0) g/dl Hct 40.0 L 38.1 L (42.0-52.0) % Plt Count 200 190 (160-400) X10*3/uL BMP 03/20/23 03/21/23 19:54 05:40 Sodium 143 141 Potassium 3.5 3.5 Chloride 100 102 Carbon Dioxide 25 31 H BUN 24 H 21 H Creatinine 1.44 H 1.13 Calcium 10.1 9.5 Cardiac Enzymes 03/20/23 Range/Units 19:54 Total Creatine Kinase 89 (38-174) U/L Liver Function 03/20/23 Range/Units 19:54 Total Bilirubin 0.7 (0.0-1.0) mg/dL AST 16 (5-37) U/L ALT 14 (0-40) U/L Alkaline Phosphatase 44 (39-117) U/L Albumin 4.6 (3.5-5.0) g/dL Noncontrast MRI of brain did not reveal any obvious acute abnormality. Moderately severe diffuse cerebral atrophy and moderately severe chronic microvascular ischemic changes were noted per Assessment and Plan (1) Transient ischemic attack: Status: Acute 83 years old man who probably had transient aphasia due to cerebral ischemia. He is in atrial fibrillation at this time. My recommendation is lifelong anticoagulation which can be started any time. Time Spent With Patient Time: Total time managing care of this patient today ____ minutes. Procedures Date of Service Date of Service: 03/21/23
--- NOTE | 2023-03-21 13:46 | P.DS_ITS ---
DS: Providers Provider Date of Service: 03/21/23 Date of admission: 03/20/23 22:46 Date of discharge: 03/21/23 Primary care physician: Roderick Williamson MD Consults: 03/20/23 23:20 Consult to Cardiology Routine Consulting Provider: [facility] Reason for consultation: Afib with rvr Consult to Neurology Routine Consulting Provider: [facility] Reason for consultation: TIA DS: Diagnosis Discharge Diagnosis (1) Transient ischemic attack: Status: Acute (2) New onset atrial fibrillation: Status: Acute (3) Acute renal failure: Status: Acute DS: Summary Hospital Course Hospital Course: from admission history and physical by hospitalist Sukhwinder Sharpe MD, 03.20.23: This is a 83 pertinent history of [id number] diabetes mellitus, essential hypertension, mixed hyperlipidemia who presents to the emergency department for evaluation of slurred speech.? Patient states he had an episode of slurred speech 1 day prior to presentation tested for about 4 hours.? Patient states he attended his granddaughter's graduation and came home when he noticed slurred speech.? Patient did not want to come to the ER.? He also had slight headache overnight.? On the day of presentation, patient again had an episode of slurred speech which lasted for about an hour.? No loss of consciousness, tongue bite, jerking movement of extremities, facial droop, extremity weakness or similar complaints in the past.? Patient denies fever, chills, chest discomfort, palpitations, shortness of breath, abdominal pain, changes in urinary or bowel habits.? No history of heart rhythm issues In the emergency department, patient was found to be in AFib with RVR from cardiology constulation by terrazzo installer Benitez Chao MD, 03.21.23: Thank you for consulting us on Santiago in management of his atrial fibrillation.? He is a pleasant and active 83-year-old male who presented to the hospital with slurred speech.? No other obvious neurologic deficits.? Symptoms then recurred in the emergency room.? He had a CT scan which was unremarkable.? He was noted to be in atrial fibrillation rapid ventricular response.? He has no symptoms related to atrial fibrillation.? He says very active and has had longstanding hypertension for 50 years and is been on the same medications for that long.? He also has history of diabetes.? He has never had any cardiac issues.? Has never had congestive heart failure, coronary artery disease, myocardial infarction, cardiac arrhythmias.? He denies any symptoms of palpitations.? He denies any lightheadedness, syncope.? He was not aware that it heart was not irregular rhythm.? He said he has never been told that he has had cardiac arrhythmias in the past.? He has no current cardiac symptoms.? Denies any chest pain or shortness of breath.? Unclear as to the duration of his atrial fibrillation.? His rate is adequately controlled at this point in time [place] [facility] He remained in persistent atrial fibrillation though with adequately controlled rate. No recurrence of slurred speech. 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 Neurology and Cardiology were consulted. He was placed on metoprolol tartrate for rate control [with lisinopril dose reduced to allow blood pressure room]. He was placed on apixaban for anticoagulation. He will need outpatient echocardiogram and Holter monitor and will follow up with Cardiology. ADRIANA resolved after IV hydration. Time Spent with Patient Time attestation: Total time managing care of this patient today __40__ minutes. Discharge coordination time: Greater than 30 minutes Quality: Safe Use of Opioids Does Pt have an Active Cancer Diagnosis on the Problem List?: No Quality: Stroke Does the patient have a stroke diagnosis?: No Physical Exam Vital Signs: Vital Signs: Last Vital Signs Temp 97.8 F 03/21/23 11:10 Pulse 90 03/21/23 11:10 Resp 20 03/21/23 11:10 BP 108/57 L 03/21/23 11:10 Pulse Ox 97 03/21/23 11:10 O2 Del Method Room Air 03/21/23 11:10 BMI result Body Mass Index 24.4 Gen: in no acute distress HEENT: sclera anicteric, moist mucus membranes Neck: supple Lungs: clear to auscultation bilaterally Heart: regular rate and rhythm, no murmurs Abd: soft, non-tender, non-distended Ext: no edema Skin: warm/well-perfused Neuro: alert and oriented x3, no focal findings Psych: appropriate affect DS: Data Data Completed and Pending Completed studies during hospitalization [Text1]: ITS Impressions Head CT 03/20/23 20:04 IMPRESSION: No acute intracranial pathology. Mild volume loss with small vessel ischemic change. This critical result was discussed with Toby Field MD by telephone at 03/20/2023 8:09 PM and it was ascertained that the content and urgency of the report was understood at the time of direct communication. Head/Neck CTA 03/20/23 20:09 IMPRESSION: 1. No acute intracranial finding. Chronic volume loss with small vessel ischemic change. 2. No large vessel occlusion or flow-limiting stenosis. This critical result was discussed with Toby Field MD by telephone at 03/20/2023 8:11 PM and it was ascertained that the content and urgency of the report was understood at the time of direct communication. Brain MRI 03/21/23 10:30 IMPRESSION: No acute infarct, mass lesion, intracranial hemorrhage, or evidence of hydrocephalus. 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 Mild chronic microangiopathic changes and brain parenchymal volume loss. Discharge Plan Discharge Anticipated Discharge Date/Time: 03/21/23 13:32 Patient Disposition: Home, Self-Care Discharge Diagnosis: transient ischemic attack new-onset atrial fibrillation acute kidney injury Referrals: Roderick Williamson MD [Primary Care Provider] - 1 Week Benitez Chao MD [Physician] - 4 Weeks Discharge Medications: New Eliquis 5 mg Tablet 5 mg PO BID Qty: 60 0RF lisinopril 20 mg Tablet 20 mg PO DAILY Qty: 30 0RF Protocol: Hold for SBP< HOLD for SBP < : 90 metoprolol tartrate 25 mg Tablet 25 mg PO BID Qty: 60 0RF Protocol: Hold for SBP/HR < HOLD for SBP < : 90 HOLD for HR < : 60 Continued metformin 500 mg tablet 1,000 mg PO BID cyanocobalamin (vitamin B-12) [Vitamin B-12] 1,000 mcg tablet 1,000 mcg PO DAILY hydrochlorothiazide 25 mg tablet 25 mg PO DAILY rosuvastatin 10 mg tablet 10 mg PO DAILY Discontinued lisinopril 40 mg tablet 40 mg PO DAILY Discharge Orders: Discharge Order (Routine); Ordered 03/21/23 Ordered By: Ivett Delgado Diet: Diabetic diet Activity on Discharge: As tolerated Stand Alone Forms: Patient Portal Discharge page Care Plan Goals: stroke prevention Health Concerns: transient ischemic attack new-onset atrial fibrillation acute kidney injury Plan of Treatment: continue rosuvastatin start apixaban 5 mg twice daily for stroke prevention start metoprolol tartrate 25 mg twice daily for rate control; this also serves as an antihypertensive, so decrease lisinopril from 40 to 20 mg daily follow up with [facility] Cardiology in 4 weeks; will need echocardiogram + Holter monitor Please follow up with your primary care doctor within 1 week. Return to the hospital if you experience recurrent or worsening symptoms. Assessment: See Discharge Summary.
--- NOTE | 2023-03-21 14:13 | MHC.CM.PN ---
IMM 03/21/23, EMR REVIEWED, PT ADMITTED W/SLURRED SPEECH, CM MET W/PT AND WHO IS AT BEDSIDE, PT REPORTS HE IS INDEP W/ALL CARE, DRIVES, WORKS AND DENIES USE OF DME.HOME SERVICES, PT MET W/CM TO COMPLETE A HCP, PT NAMED HIS ENA [phone] HIS HCA W/NO ALTERNATE AT THIS TIME, PT PROVIDED W/EDUCATION, ORIGINAL AND 2 COPIES, COPY UPLOADED TO [facility] AND PLACED IN CHART. PT VERIFIES PCP KERON LOPEZ X3. PT DISCHARGING HOME TODAY SELF CARE W/FAMILY FOR TRANSPORT
--- NOTE | 2023-03-21 14:43 | MHC.STROKE ---
I MET WITH THE PATIENT, HIS DAUGHTER AND . I REVIEWED HIS MRI AND TEST RESULTS IT RELATES TO TIA/STROKE. I DISCUSSED HIS INDIVIDUAL RISK FACTORS, CURRENT MEDICATIONS AND STROKE PREVENTION STRATEGIES. WE REVIEWED THE STROKE EDUCATION BOOKLET AND HANDOUTS. WE DISCUSSED IS NEW DIAGNOSIS OF AFIB AND WHY HE IS ON ELIQUIS. HE DID ADMIT TO HAVING A FAMILY HISTORY OF STROKE-HIS FATHER, AND HE HAS SPENT HIS WHOLE LIFE TRYING TO PREVENT A STROKE FOR HIMSELF. HE IS QUITE MOTIVATED. HE WILL BE FOLLOWED BY CARDIOLOGY , AND HE WELL GET AN OP ECHO AND HOLTER MONITOR IN THE MEANTIME HE IS ON AN ANTICOAGULANT FOR STROKE PREVENTION. I ANSWERED ALL OF THEIR QUESTIONS.
== END 2023-03-21 14:50 | disposition home or self-care (01) | DRG 69 ==
LOC: HO.ED 22:44 → HO.EDOVER 22:53 → HO.IMC 23:59
PROVIDERS: Admitting Provider Student in an Organized Health Care Education/Training Program; Emergency Provider Internal Medicine; PCP Internal Medicine; Visit Provider Family Medicine
DX: G45.9 Transient cerebral ischemic attack, unspecified (principal); N17.9 Acute kidney failure, unspecified; I48.91 Unspecified atrial fibrillation; I67.82 Cerebral ischemia; E78.2 Mixed hyperlipidemia; E11.9 Type 2 diabetes mellitus without complications; I10 Essential (primary) hypertension; Z87.891 Personal history of nicotine dependence; Z79.84 Long term (current) use of oral hypoglycemic drugs; Z79.899 Other long term (current) drug therapy
CPT/HCPCS: 36415; 70450; 70496; 70498; 70551; 80048; 80053; 80061; 80307; 82550; 82947; 83036; 83735; 84484; 85025; 85610; 85730; 93005; 99285; J1650

== ENCOUNTER → 2023-04-11 07:39 | Outpatient (REF) | payer MEDICARE, SELFPAY | LOC: HO.CARD 07:39 | PROVIDERS: PCP Internal Medicine; Visit Provider Internal Medicine Cardiovascular Disease | DX: I48.91 Unspecified atrial fibrillation (principal); G45.9 Transient cerebral ischemic attack, unspecified | CPT/HCPCS: 93242 ==

== ENCOUNTER → 2023-04-20 07:49 | Outpatient (REF) | payer MEDICARE, SELFPAY ==
--- NOTE | 2023-04-20 08:09 | CA_ITS ---
Transthoracic Echocardiogram Patient (Last, First, Middle): Santiago Colin P Gender: Male Date of : 1940 Age: 83 Procedure Date: 04/20/2023 Procedure Type: Transthoracic Echocardiogram Location: OP Height: 162.56 cm Weight: 63.96 kg BSA: 1.69 m2 Heart Rate: bpm BP: 122 / 56 mmHg Sweet Pickle Maker: Referring MD: Benitez Chao MD Coat Finisher: Benitez Chao MD Symptoms: I48.91 - Unspecified atrial fibrillation Study Quality: Fair ECG Rhythm: Atrial Fibrillation Conclusions: - 1. Normal LV ejection fraction with LVEF of 60 65% 2. Moderately dilated left atrium 3. Mild mitral regurgitation 4. Upper limits of normal RV systolic pressure 5. No gross pericardial effusion Findings Left Ventricle Normal left ventricular size, thickness, and systolic function. The visually estimated ejection fraction is between 60-65%. Diastolic function is indeterminate on the basis of available data. Right Ventricle Normal right ventricular cavity size. There is borderline right ventricular systolic function. Atria The left atrium is moderately dilated. Interatrial shunt cannot be excluded. The right atrium is likely dilated. Aortic Valve There is mild calcification of the aortic valve. There is no aortic valve stenosis. There is no aortic valve regurgitation. Mitral Valve There is mild anterior and posterior mitral leaflet thickening. There is mild mitral valve regurgitation. There is no mitral valve stenosis. Pulmonic Valve The pulmonic valve was not well visualized. Tricuspid Valve Normal tricuspid valve structure. There is mild tricuspid valve regurgitation. Normal right atrial pressure. There is no evidence of pulmonary hypertension. Great Vessels All visible segments of the aorta are normal in size. The pulmonary artery was not well visualized. Venous The inferior vena cava is normal in size and collapses greater than 50% with inspiration. Pericardium/Pleural There is no evidence of pericardial effusion. Prior Study Comparison No prior study available for comparison. Measurements 2D Linear Measurements RVIDd: 3.07 RVIDd Index: 1.82 IVSd: 1.14 0.6-0.9/0.6-1.0 cm LVIDd: 4.05 3.9-5.3/4.2-5.9 cm LVIDd Index: 2.40 2.4-3.2/2.2-3.1 cm/m2 LVIDs: 2.75 2.0-3.6 cm LVPWd: 1.11 0.7-1.1 cm Ao Root: 3.20 2.1-3.5 cm LA Diam: 4.40 2.7-3.8/3.0-4.0 cm LAIDs Index: 2.60 1.5-2.3 cm/m2 LV Mass: 190.96 67-162/88-224 g LV Mass Index: 113.00 43-95/49-115 g/m2 LVOT Diam: 2.00 3.0+(-)1.3 cm Mitral Valve MV Pk E: 1.19 MV Decel Time: 179.00 E'Lateral: 7.83 E'Medial: 8.16 E/E' Med: 14.60 E/E' Lat: 15.20 PHT: 52.00 MVA PHT: 4.23 Decel Kern: 6.66 MR Vol - PW Dopp: 33.49 MR VTI: 1.97 MR ERO: 17.00 MR Alias Richi: 0.31 MR RAD: 0.70 Aortic Valve AoV Pk Richi: 1.43 AoV Mn Richi: 1.00 AoV VTI: 0.32 AoV Pk Grad: 8.00 Aov Mn Grad: 5.00 BEN Cont.VTI: 1.49 LVOT LVOT Pk Richi: 0.60 LVOT Mn Richi: 0.45 LVOT VTI: 0.15 LVOT Pk Grad: 1.00 LVOT Mn Grad: 1.00 LVOT Diam: 2.00 LVOT Area: 3.14 Diastolic Function MV Pk E: 1.19 E'Medial: 8.16 E/E' Med: 14.60 E' Laterial: 7.83 E/E' Lat: 15.20 Right Ventricle TAPSE (mm): 17.00 TVS' Richi: 8.00 Tricuspid Valve TR Pk Richi: 2.92 TR Pk Grad: 34.00 RA Press: 3.00 RVSP: 37.00 Great Vessels Aorta Ao Root-2D: 3.20 2.0-3.7 cm Ao Asc: 2.90 2.1-3.4 cm Pulmonary Valve PV Pk Richi: 0.77 Peak PV Grad: 2.00 Updated in Other Vendor System with Status of Final Benitez Chao MD electronically signed on 04/21/2023 4:47:49 PM with status of Final
== END ==
LOC: HO.CARD 07:49
PROVIDERS: PCP Internal Medicine; Visit Provider Internal Medicine Cardiovascular Disease
DX: I48.91 Unspecified atrial fibrillation (principal); Z86.73 Personal history of transient ischemic attack (TIA), and cerebral infarction without residual deficits
CPT/HCPCS: 93306

== ENCOUNTER → 2023-04-20 08:09 | Outpatient (BNV) | payer MEDICARE, SELFPAY | PROVIDERS: PCP Internal Medicine; Visit Provider Internal Medicine Cardiovascular Disease | DX: I34.0 Nonrheumatic mitral (valve) insufficiency (principal) | CPT/HCPCS: 93306 ==